=== PATIENT | female | born 1985 | race Caucasian/White ===

== ENCOUNTER → 2017-02-20 07:13 | Outpatient (CLI) | payer MEDICAID ==
[2016-05-31 10:09] VITALS: BMI 36.5
[~2017-02-20 07:13] MED LIST: HYDROCODON-ACE1 EAC7 PO; KEFLEX500 MG PO; SYMBICORT 16010.2 GM INH; VENTOLIN HFA18 GM INH
== END | disposition home or self-care (01) ==
LOC: D.RT 07:13
DX: J45.909 Unspecified asthma, uncomplicated (principal)